=== PATIENT | female | born 1955 | race Caucasian/White ===

== ENCOUNTER → 2024-01-06 07:30 | Outpatient (REF) | payer MEDICARE, OTHER, SELFPAY | LOC: MRI 07:30 | PROVIDERS: ATTENDING PHYSICIAN Physician Assistant Surgical; FAMILY PHYSICIAN Family Medicine | DX: M76.62 Achilles tendinitis, left leg (principal); J45.991 Cough variant asthma; R13.10 Dysphagia, unspecified | CPT/HCPCS: 71046; 73721 ==

== ENCOUNTER → 2024-06-06 14:30 | Outpatient (REF) | payer MEDICARE, OTHER, SELFPAY | LOC: RAD 14:30 | PROVIDERS: ATTENDING PHYSICIAN Internal Medicine Critical Care Medicine; FAMILY PHYSICIAN Family Medicine | DX: D68.51 Activated protein C resistance (principal); Z98.890 Other specified postprocedural states; Z87.19 Personal history of other diseases of the digestive system; R91.8 Other nonspecific abnormal finding of lung field | CPT/HCPCS: 71250 ==

== ENCOUNTER → 2024-09-19 09:53 | Outpatient (REF) | payer MEDICARE, OTHER, SELFPAY | LOC: PAVMRI 09:53 | PROVIDERS: ATTENDING PHYSICIAN Physician Assistant Surgical; FAMILY PHYSICIAN Family Medicine | DX: M19.012 Primary osteoarthritis, left shoulder (principal); M25.512 Pain in left shoulder; I67.1 Cerebral aneurysm, nonruptured; I72.9 Aneurysm of unspecified site | CPT/HCPCS: 70544; 73221 ==

== ENCOUNTER → 2025-03-28 09:54 | Outpatient (REF) | payer MEDICARE, OTHER, SELFPAY | LOC: RAD 09:54 | PROVIDERS: ATTENDING PHYSICIAN Internal Medicine Endocrinology, Diabetes & Metabolism; FAMILY PHYSICIAN Family Medicine | DX: M81.0 Age-related osteoporosis without current pathological fracture (principal) | CPT/HCPCS: 77080 ==

== ENCOUNTER → 2025-04-07 14:30 | Outpatient (REF) | payer MEDICARE, OTHER, SELFPAY | LOC: RAD 14:30 | PROVIDERS: ATTENDING PHYSICIAN Internal Medicine Gastroenterology; FAMILY PHYSICIAN Family Medicine | DX: R10.31 Right lower quadrant pain (principal) | CPT/HCPCS: 74177; Q9967 ==